=== PATIENT | male | born 1950 | race Asian ===

== ENCOUNTER 2020-12-16 13:01 | Inpatient (IN) | payer OTHER ==
[~2020-12-16] VITALS: Ht 160 cm; Wt 64.1 kg
[2020-12-16] MEDS ORDERED: METO50 PO (13:13)
[2020-12-16] MEDS ORDERED: METF-960 PO (13:13)
[2020-12-16] MEDS ORDERED: ASPI-1522 PO (13:13)
[2020-12-16] MEDS ORDERED: ATOR10TA84 PO (13:13)
[2020-12-16] MEDS ORDERED: ONDANSETRON HCL 4 MG/2 ML VIAL IVP ONE (13:30)
[2020-12-16] MEDS ORDERED: SODIUM CHLORIDE 0.9% 1,000 ML IV ONE (13:30)
[2020-12-16 13:50] LABS: BASOPHILS % (AUTO) 0.7 % (0.0-2.0); EOSINOPHILS % (AUTO) 1.8 % (1.0-6.0); HEMATOCRIT 42.9 % (41-53); HEMOGLOBIN 14.7 g/dL (13.5-17.5); LYMPHOCYTES # (AUTO) 1.5 K/uL (1.0-4.8); LYMPHOCYTES % (AUTO) 26.5 % (22.0-44.0); MEAN CORPUSCULAR HEMOGLOBIN 35.4 pg (26.0-34.0); MEAN CORPUSCULAR HGB CONC 34.2 G/dL (31.0-37.0); MEAN CORPUSCULAR VOLUME 104 fL (80-100); MONOCYTES # (AUTO) 0.3 K/uL (0.1-1.0); MONOCYTES % (AUTO) 4.9 % (2.0-9.0); NEUTROPHILS # (AUTO) 3.8 K/uL (1.8-7.7); NEUTROPHILS % (AUTO) 66.1 % (40.0-70.0); PLATELET COUNT (AUTO) 255 K/uL (150-450); RED BLOOD CELL COUNT(AUTO) 4.14 MIL/uL (4.50-5.90); RED CELL DISTRIBUTION WIDTH 12.7 % (11.5-14.5)
[2020-12-16 14:02] LABS: ANION GAP 12 mmol/L (8-16); CALCIUM, TOTAL 10.3 mg/dL (8.8-10.5); CARBON DIOXIDE 26 mmol/L (22-29); CHLORIDE 100 mmol/L (98-107); CREATININE 1.26 mg/dL (0.60-1.30); GLOMERULAR FILTR. RATE CALC 57 mL/min (>60); GLUCOSE,RANDOM 182 mg/dL (70-110); POTASSIUM 4.4 mmol/L (3.5-5.1); SODIUM SERUM 138 mmol/L (136-145); UREA NITROGEN, BLOOD 22 mg/dL (7-18)
[2020-12-16 14:07] LABS: ALANINE AMINOTRANSFERASE 46 U/L (12-78); ALBUMIN 4.1 g/dL (3.4-5.0); ALKALINE PHOSPHATASE 67 U/L (46-116); ASPARTATE AMINOTRANSFERASE 24 U/L (15-37); BILIRUBIN,TOTAL 0.9 mg/dL (0.1-1.0); TOTAL PROTEIN, SERUM 7.5 g/dL (6.4-8.2)
[2020-12-16] MEDS ORDERED: IOVERSOL 320 MG/ML 100 ML VIAL ONE (14:40)
[2020-12-16] MEDS ORDERED: SODIUM CHLORIDE 0.9% 100 ML ONE (14:40)
[2020-12-16] MEDS ORDERED: IOVERSOL 350 MG/ML 100 ML VIAL ONE (15:17)
[2020-12-16 16:07] LABS: COVID AG,FIA SOURCE NASOPHARYNGEAL
[2020-12-16] MEDS ORDERED: 0.9% SODIUM CHLORIDE 10 ML SYRINGE IVP PRN (16:15)
[2020-12-16] MEDS ORDERED: ACETAMINOPHEN 325 MG TABLET PO PRN ×3 (16:15→16:45)
[2020-12-16] MEDS ORDERED: ONDANSETRON HCL 4 MG/2 ML VIAL IVP PRN ×2 (16:15→16:45)
[2020-12-16] MEDS ORDERED: BISACODYL 10 MG RECTAL RECTAL SUPPOSITORY PR PRN (16:45)
[2020-12-16] MEDS ORDERED: MORPHINE SULFATE 2 MG/ML SYRINGE IVP PRN ×2 (16:45)
[2020-12-16] MEDS ORDERED: IPRATROPIUM BROMIDE 0.5 MG/2.5 ML NEB SOLUTION NEB PRN ×2 (16:45)
[2020-12-16] MEDS ORDERED: ZOLPIDEM TARTRATE 10 MG TABLET PO PRN (16:45)
[2020-12-16] MEDS ORDERED: MAGNESIUM HYDROXIDE SUSPENSION 30 ML UDCUP PO PRN (16:45)
[2020-12-16] MEDS ORDERED: ALBUTEROL SULFATE 2.5 MG/0.5 ML NEB SOLUTION NEB PRN ×2 (16:45)
[2020-12-16] MEDS ORDERED: HYDROCODONE/ACETAMINOPHEN 5-325 MG TABLET PO PRN ×2 (16:45)
[2020-12-16] MEDS ORDERED: PIPERACILLIN SODIUM/TAZOBACTAM 3.375 GM/VIAL TP ONE (17:00)
[2020-12-16] MEDS ORDERED: PIPERACILLIN/TAZO 3.375 GM/D5W 50 ML IV ONE (17:00)
[2020-12-16 17:07] VITALS: BP 145/78
[2020-12-16 17:30] VITALS: BP 145/78
[2020-12-16] MEDS: NITROGLYCERIN 2% (1 GM=INCH) PACKET TP SCH (18:00)
[2020-12-16 20:00] VITALS: BP 157/78
[2020-12-16] MEDS: METOPROLOL TARTRATE 50 MG TABLET PO SCH (20:02)
[2020-12-16] MEDS: DOCUSATE SODIUM 100 MG CAPSULE PO SCH ×2 (20:02→21:00)
[2020-12-16] MEDS: FAMOTIDINE 10 MG/ML 2 ML VIAL IVP SCH (20:03)
[2020-12-16] MEDS ORDERED: SODIUM CHLORIDE 0.9% 250 ML IV ONE (20:37)
[2020-12-16 23:35] VITALS: BP 138/81
[2020-12-17 04:40] VITALS: BP 124/71
[2020-12-17] MEDS: NITROGLYCERIN 2% (1 GM=INCH) PACKET TP SCH ×5 (05:54→23:53)
[2020-12-17 06:57] LABS: CHOL/HDL RATIO 5.6 (4.2-7.3); CHOLESTEROL 211 mg/dL (131-200); HDL CHOLESTEROL 38 mg/dL (40-60); TRIGLYCERIDES 520 mg/dL (15-150)
[2020-12-17 08:04] VITALS: BP_SYST 106; BP_SYST 139; BP_DIAS 58; BP_DIAS 76
[2020-12-17] MEDS: ATORVASTATIN CALCIUM 10 MG TABLET PO SCH (09:04)
[2020-12-17] MEDS: DOCUSATE SODIUM 100 MG CAPSULE PO SCH ×2 (09:04→20:07)
[2020-12-17] MEDS: METOPROLOL TARTRATE 50 MG TABLET PO SCH ×3 (09:04→21:00)
[2020-12-17] MEDS: FAMOTIDINE 10 MG/ML 2 ML VIAL IVP SCH ×2 (09:05→20:08)
[2020-12-17] MEDS: ASPIRIN 81 MG DR TABLET PO SCH (09:05)
[2020-12-17 11:03] VITALS: BP 114/67
[2020-12-17] MEDS ORDERED: CefTRIAXone 1 GM/DEXTROSE 50 ML IV SCH (12:00)
[2020-12-17 12:37] LABS: GLUCOMETER DEV NAME(LOC) 5N.3; GLUCOSE,POINT OF CARE 160 MG/DL (70-110)
[2020-12-17] MEDS ORDERED: GLUCAGON,HUMAN RECOMBINANT 1 MG VIAL IM PRN (12:45)
[2020-12-17] MEDS ORDERED: INSULIN LISPRO 100 UNITS/ML SQ PRN (12:45)
[2020-12-17] MEDS ORDERED: DEXTROSE 50%-WATER 25 GM/50 ML SYRINGE IVP PRN (13:00)
[2020-12-17] MEDS ORDERED: MetroNIDAZOLE 500 MG/NACL 100 ML IV SCH (13:00)
[2020-12-17 15:35] VITALS: BP 127/67
[2020-12-17] MEDS: INSULIN LISPRO 100 UNITS/ML SQ PRN ×2 (17:14→21:03)
[2020-12-17 19:26] VITALS: BP 104/62
[2020-12-17 22:00] VITALS: BP 122/76
[2020-12-17 22:34] LABS: GLUCOMETER DEV NAME(LOC) 5N.1B; GLUCOSE,POINT OF CARE 196 MG/DL (70-110)
[2020-12-18 00:29] VITALS: BP 126/71
[2020-12-18 04:41] VITALS: BP 111/73
[2020-12-18] MEDS: NITROGLYCERIN 2% (1 GM=INCH) PACKET TP SCH ×2 (05:46→11:45)
[2020-12-18] MEDS: INSULIN LISPRO 100 UNITS/ML SQ PRN ×2 (05:55→11:50)
[2020-12-18 06:31] LABS: BASOPHILS % (AUTO) 0.7 % (0.0-2.0); EOSINOPHILS % (AUTO) 2.5 % (1.0-6.0); HEMATOCRIT 43.2 % (41-53); HEMOGLOBIN 14.7 g/dL (13.5-17.5); LYMPHOCYTES # (AUTO) 1.4 K/uL (1.0-4.8); LYMPHOCYTES % (AUTO) 26.7 % (22.0-44.0); MEAN CORPUSCULAR HEMOGLOBIN 35.4 pg (26.0-34.0); MEAN CORPUSCULAR VOLUME 104 fL (80-100); MONOCYTES # (AUTO) 0.3 K/uL (0.1-1.0); MONOCYTES % (AUTO) 6.4 % (2.0-9.0); NEUTROPHILS # (AUTO) 3.4 K/uL (1.8-7.7); NEUTROPHILS % (AUTO) 63.7 % (40.0-70.0); PLATELET COUNT (AUTO) 264 K/uL (150-450); RED BLOOD CELL COUNT(AUTO) 4.15 MIL/uL (4.50-5.90); RED CELL DISTRIBUTION WIDTH 13.2 % (11.5-14.5)
[2020-12-18 07:02] LABS: ALBUMIN 3.8 g/dL (3.4-5.0); CALCIUM, TOTAL 9.3 mg/dL (8.8-10.5); CREATININE 1.38 mg/dL (0.60-1.30); POTASSIUM 4.1 mmol/L (3.5-5.1); TOTAL PROTEIN, SERUM 7.1 g/dL (6.4-8.2)
[2020-12-18 07:15] VITALS: BP 128/90
[2020-12-18 08:11] LABS: GLUCOMETER DEV NAME(LOC) 5S.1; GLUCOSE,POINT OF CARE 185 MG/DL (70-110)
[2020-12-18 08:11] LABS: GLUCOMETER DEV NAME(LOC) 5S.1; GLUCOSE,POINT OF CARE 178 MG/DL (70-110)
[2020-12-18] MEDS: ASPIRIN 81 MG DR TABLET PO SCH (08:23)
[2020-12-18] MEDS: ATORVASTATIN CALCIUM 10 MG TABLET PO SCH (08:23)
[2020-12-18] MEDS: FAMOTIDINE 10 MG/ML 2 ML VIAL IVP SCH (08:24)
[2020-12-18] MEDS: DOCUSATE SODIUM 100 MG CAPSULE PO SCH (08:25)
[2020-12-18] MEDS: METOPROLOL TARTRATE 50 MG TABLET PO SCH (08:42)
[2020-12-18] MEDS ORDERED: ACET-2247 PO (11:27)
[2020-12-18 11:35] VITALS: BP 117/70
[2020-12-18 11:47] LABS: GLUCOMETER DEV NAME(LOC) 5S.1; GLUCOSE,POINT OF CARE 182 MG/DL (70-110)
== END 2020-12-18 12:30 | disposition home or self-care (01) | DRG 313 ==
LOC: EMS 13:10 → 5S 16:40
PROVIDERS: ADMIT Hospitalist; ATTEND Hospitalist
DX: R07.89 Other chest pain (principal); R55 Syncope and collapse; I10 Essential (primary) hypertension; E11.9 Type 2 diabetes mellitus without complications; E78.5 Hyperlipidemia, unspecified; I25.10 Atherosclerotic heart disease of native coronary artery without angina pectoris; E78.00 Pure hypercholesterolemia, unspecified; I25.2 Old myocardial infarction; Z95.1 Presence of aortocoronary bypass graft; Z98.84 Bariatric surgery status; Z20.822 Contact with and (suspected) exposure to COVID-19
CPT/HCPCS: 70450; 71260; 72193; 74160; 84145; 87426; 93005; 93306; 93880; 99285; G0480; J0696; J2405; J2543; J3490; J7050; 36415-L1; 36415-TC; 71045-TC; 80061-TC